=== PATIENT | female | born 1970 | race Two or more races ===

== ENCOUNTER 2018-02-23 14:16 | Emergency (ER) | payer OTHER ==
[~2018-02-23] VITALS: Ht 165.1 cm; Wt 72.6 kg
== END 2018-02-23 18:10 | disposition home or self-care (01) ==
LOC: ER 14:16
DX: M54.5 Low back pain (principal)

== ENCOUNTER 2021-05-08 12:21 | Emergency (ER) | payer OTHER ==
[~2021-05-08] VITALS: Ht 165.1 cm; Wt 76.2 kg
[2021-05-08] MEDS ORDERED: ZITHROMAX TRI-500 MG PO (16:05)
== END 2021-05-08 16:11 | disposition home or self-care (01) ==
LOC: ER 12:21
DX: B34.9 Viral infection, unspecified (principal); Z20.822 Contact with and (suspected) exposure to COVID-19

== ENCOUNTER 2022-05-20 15:51 | Emergency (ER) | payer OTHER ==
[~2022-05-20] VITALS: Ht 165.1 cm; Wt 73.5 kg
[~2022-05-20 15:51] MED LIST: ZITHROMAX TRI-500 MG PO
[2022-05-20] MEDS ORDERED: KETO10TA2 (16:09)
[2022-05-20] MEDS ORDERED: FLEXERIL (16:10)
== END 2022-05-20 21:19 | disposition home or self-care (01) ==
LOC: ER 15:51
DX: J06.9 Acute upper respiratory infection, unspecified (principal); Z20.822 Contact with and (suspected) exposure to COVID-19; Z88.6 Allergy status to analgesic agent

== ENCOUNTER 2022-05-22 15:07 | Outpatient (CLI) | payer OTHER | END 2022-05-22 16:00 | disposition home or self-care (01) | LOC: ASH CLINIC 15:07 | DX: U07.1 COVID-19 (principal) ==

== ENCOUNTER 2023-03-09 15:36 | Emergency (ER) | payer OTHER ==
[~2023-03-09] VITALS: Ht 165.1 cm; Wt 65.3 kg
[~2023-03-09 15:36] MED LIST changes: +FLEXERIL; +KETO10TA2
[2023-03-09] MEDS ORDERED: ZESTRIL2.5 MG PO (16:44)
== END 2023-03-09 18:40 | disposition home or self-care (01) ==
LOC: ER 15:36
DX: R23.8 Other skin changes (principal); Z88.8 Allergy status to other drugs, medicaments and biological substances

== ENCOUNTER 2024-07-05 14:09 | Emergency (ER) | payer OTHER ==
[~2024-07-05] VITALS: Ht 165.1 cm; Wt 64.9 kg
[~2024-07-05 14:09] MED LIST changes: +ZESTRIL2.5 MG PO
[2024-07-05] MEDS ORDERED: MORPHINE SULFATE 4 MG/ML VIAL IV ONE (16:30)
[2024-07-05] MEDS ORDERED: FAMOtidine 10 MG/ML (4ML VIAL) IV ONE (16:30)
[2024-07-05 18:03] LABS: HEMATOCRIT 40.1 % (36.0-45.00); MEAN CELL VOLUME 96.1 fL (80.00-100.00); MEAN CORPUSCULAR HEMOGLOBIN 33.5 pg (27.00-32.0); MEAN CORPUSCULAR HGB CONC 34.9 g/dl (32.0-36.0); PLATELET COUNT 303 K/uL (150-450); RED BLOOD COUNT 4.17 M/uL (4.00-6.00)
[2024-07-05 18:45] LABS: ALBUMIN 4.4 gm/dL (3.4-5.0); BILIRUBIN TOTAL 0.49 mg/dL (0.3-1.2); CALCIUM 9.7 mg/dL (8.5-10.1); CREATININE SERUM 1.01 mg/dL (0.55-1.02); GFR 57.34; GLOBULINA 3.5 G/DL (2.4-3.5); POTASSIUM 4.07 mEq/L (3.5-5.1); TOTAL PROTEIN 7.9 gm/dL (6.4-8.2)
[2024-07-05 23:24] LABS: ABG PH 7.361 (7.35-7.45)
[2024-07-05 23:25] LABS: ABG PO2 21.9 mmHg (80-100); BASE EXCESS 2.3 mmol/l; BICARBONATE 28.8 mmol/l (23-25)
[2024-07-05 23:26] LABS: Tco2 30.4 mmol/l
[2024-07-05 23:28] LABS: allen test SATISFACTORY; o2 21 %; puncture site RADIAL LEFT
[2024-07-05 23:30] LABS: SaO2 34.2 %
== END 2024-07-05 18:56 | disposition home or self-care (01) ==
LOC: ER 14:09
PROVIDERS: General Practice
DX: M54.2 Cervicalgia (principal)

== ENCOUNTER 2025-03-05 12:51 | Emergency (ER) | payer OTHER ==
[~2025-03-05] VITALS: Ht 165.1 cm; Wt 66.2 kg
[2025-03-05] MEDS ORDERED: ACETAMINOPHEN 500 MG GEL..CAP PO ONE ×2 (14:00→14:03)
[2025-03-05] MEDS ORDERED: GUAIFENESIN 200 MG/10 ML BLIST.PACK PO ONE ×2 (14:00→14:03)
[2025-03-05 15:28] LABS: INFLUENZA A AG NEGATIVE (NEGATIVE); INFLUENZA B AG NEGATIVE (NEGATIVE)
[2025-03-05 15:36] LABS: COVID-19 AG POSITIVE (NEGATIVE)
== END 2025-03-05 16:36 | disposition home or self-care (01) ==
LOC: ER 12:51
PROVIDERS: General Practice
DX: U07.1 COVID-19 (principal); I10 Essential (primary) hypertension; Z88.8 Allergy status to other drugs, medicaments and biological substances